=== PATIENT | male | born 1930 | race Caucasian/White ===

== ENCOUNTER 2016-07-21 08:00 | Day surgery (SDC) | payer MEDICARE ==
[~2016-07-21] VITALS: Ht 175.3 cm; Wt 86.0 kg
[~2016-07-21 08:00] MED LIST: IBUP200C PO; OMEG300C3 PO; PRAV40TA PO; Sodium Chloride LOK Flush 10 mL Syringe IV PRN; TRIA1CAP5 PO; [UNRECOGNIZED DRUG - CODE] PO; fentaNYL-PF 50 mCg/mL 2 mL Inj IVPUSH PRN
[2016-07-21 08:19] VITALS: BP 154/98; PULSE 76; RESP 18; O2SAT 97
[2016-07-21] MEDS: 0.9% Sodium Chloride 1,000 ML IV SCH ×2 (08:32→09:43)
[2016-07-21 09:43] VITALS: BP 139/78; PULSE 67; RESP 16; O2SAT 93
[2016-07-21 09:53] VITALS: BP 127/78; PULSE 64; RESP 14; O2SAT 92
--- NOTE | 2016-07-21 10:00 | ENDO ---
[address] [address] ENDOSCOPY PROCEDURE PATIENT: ALEXX SUN : 1930 MR#: [id number] ADMIT: 07/21/2016 JOB ID: [id number] DATE: 07/21/2016 PREOPERATIVE DIAGNOSIS(ES): 1. Dysphagia. 2. Schatzki ring. 3. Hiatal hernia. 4. [place] esophagitis. POSTOPERATIVE DIAGNOSIS(ES): 1. Dysphagia. 2. Schatzki ring. 3. Hiatal hernia. 4. [place] esophagitis. PROCEDURE: Upper endoscopy with balloon dilatation, 18-20 mm balloon. SURGEON: Hiro Snu MD INDICATIONS: An 86-year-old man who has a known large hiatal hernia. He underwent an upper endoscopy with biopsy on April 21, 2016 by myself. He had a Schatzki ring. Obvious [place] esophagitis. It was biopsy confirmed, but there is no evidence of dysplasia. He has had persistent dysphagia and so after discussing options with the patient elected to proceed with upper endoscopy and dilatation. FINDINGS: The Schatzki ring and GE junction was at approximately 40 cm from the incisors. There were no new findings compared to his previous endoscopy three months ago. He was successfully dilated to an 18-20 mm balloon. There are no apparent complications. DESCRIPTION OF PROCEDURE: The procedure and sedation plan was discussed with the patient and nursing staff. A procedural time-out was held. He gargled with viscous xylocaine. He received 4 mg of Versed and 75 mcg of fentanyl. The Olympus GIF H 180 J video endoscope was passed transorally, advanced into the stomach with results as stated above. He was dilated with an 18-20 mm balloon. It was initially brought to 18 mm but it slipped down into the stomach. That balloon would not empty and when I was trying to withdraw it, the balloon stripped off its catheter. The balloon was retrieved with a forceps. The endoscope was reinserted and then using a different 18-20 mm balloon dilator, it was reinserted and the Schatzki ring was dilated twice up to 20 mm. He tolerated the procedure well. There were no apparent complications. POSTOPERATIVE DIAGNOSIS(ES): Schatzki ring. PLAN: He will return to see me in 1-2 months.
[2016-07-21 10:03] VITALS: BP 147/93; PULSE 61; RESP 16; O2SAT 97
== END 2016-07-21 23:59 | disposition home or self-care (01) ==
LOC: END 08:00
PROVIDERS: ATTEND Surgery
DX: K22.70 Barrett's esophagus without dysplasia (principal); K22.2 Esophageal obstruction; K44.9 Diaphragmatic hernia without obstruction or gangrene; I10 Essential (primary) hypertension
CPT/HCPCS: 43249; G0500; J2250; J7030